=== PATIENT | female | born 1965 ===

== ENCOUNTER 2018-05-31 13:39 | Emergency (ER) | payer OTHER ==
[2018-05-31] MEDS ORDERED: IPRATROPIUM/ALBUTEROL 0.5-2.5 MG/3 ML AMPUL NEB ONE (14:28)
--- NOTE | 2018-05-31 14:30 | ER Document Report ---
ED Medical Screen (RME) - General Chief Complaint: Shortness Of Breath Stated Complaint: SHORTNESS OF BREATH Time Seen by Provider: 05/31/18 14:24 Notes: Fever,chills cough,sob since this morning. Been on 4 rounds of antibiotics last month. decreased BS TRAVEL OUTSIDE OF THE [place] IN LAST 30 DAYS: No - Related Data Allergies/Adverse Reactions: DORITA Inhibitors Allergy (Verified 05/31/18 13:43) egg Allergy (Verified 05/31/18 13:43) latex Allergy (Verified 05/31/18 13:43) metronidazole [From Flagyl] Allergy (Verified 05/31/18 13:43) shellfish derived Allergy (Verified 05/31/18 13:43) Physical Exam - Vital signs Vitals: Temp Pulse Resp BP Pulse Ox 98.3 F 85 16 142/93 H 97 05/31/18 14:04 05/31/18 14:04 05/31/18 14:04 05/31/18 14:04 05/31/18 14:04 Course - Vital Signs Vital signs: Temp Pulse Resp BP Pulse Ox 98.3 F 85 16 142/93 H 97 05/31/18 14:04 05/31/18 14:04 05/31/18 14:04 05/31/18 14:04 05/31/18 14:04 Doctor's Discharge - Discharge Referrals: MAYA RAMOS MD [Primary Care Provider] - Follow up as needed
[2018-05-31 15:18] LABS: ABSOLUTE BASOPHILS # (AUTO) 0.1 10^3/uL (0.0-0.2); ABSOLUTE EOSINOPHILS # (AUTO) 0.6 10^3/uL (0.0-0.6); ABSOLUTE LYMPHOCYTES (AUTO) 2.5 10^3/uL (0.5-4.7); ABSOLUTE MONOCYTES (AUTO) 0.8 10^3/uL (0.1-1.4); ABSOLUTE NEUT (AUTO) 5.4 10^3/uL (1.7-8.2); BASOPHILS % (AUTO) 1.5 % (0-2); EOSINOPHILS % (AUTO) 6.4 % (0-6); HEMATOCRIT 42.4 % (36.0-47.0); HEMOGLOBIN 14.7 g/dL (12.0-15.5); LYMPHOCYTES % (AUTO) 26.6 % (13-45); MEAN CORPUSCULAR HGB CONC 34.7 g/dL (32.0-36.0); MEAN CORPUSCULAR VOLUME 86 fl (80-97); PLATELET COUNT 281 10^3/uL (150-450); RED BLOOD COUNT 4.91 10^6/uL (3.72-5.28); RED CELL DISTRIBUTION WIDTH 13.3 % (11.5-14.0); SEGMENTED NEUTROPHILS % (AUTO) 57.5 % (42-78); TOTAL CELLS COUNTED % (AUTO) 100 %; WHITE BLOOD COUNT 9.4 10^3/uL (4.0-10.5)
[2018-05-31] MEDS ORDERED: NORMAL SALINE 1000 ML 1,000 ML IV ONE (15:34)
[2018-05-31] MEDS ORDERED: BENZONATATE 100 MG CAPSULE PO ONE (15:34)
[2018-05-31] MEDS ORDERED: KETOROLAC TROMETHAMINE INJ/PF 30 MG/1 ML SDV IV ONE (15:34)
[2018-05-31] MEDS ORDERED: ALBUTEROL SULFATE 0.083% NEB 2.5 MG/3 ML AMPUL NEB ONE (15:34)
[2018-05-31] MEDS ORDERED: METHYLPREDNISOLONE INJ 125 MG/2 ML SDV IV ONE (15:34)
--- NOTE | 2018-05-31 15:34 | ER Document Report ---
ED Respiratory Problem - General Chief Complaint: Shortness Of Breath Stated Complaint: SHORTNESS OF BREATH Time Seen by Provider: 05/31/18 14:24 Mode of Arrival: Ambulatory Information source: Patient TRAVEL OUTSIDE OF THE [place] IN LAST 30 DAYS: No - HPI Patient complains to provider of: Cough, Short of breath Onset: Other - 6 weeks Duration: Intermittent episodes Short of Breath: Moderate Chest pain/discomfort: Tightness Cough: Nonproductive Associated symptoms: Congestion, Cough, Short of breath Similar symptoms previously: Yes Recently seen / treated by doctor: Yes Notes: Patient is a 52-year-old female presenting to the emergency room today complaining of approximately 6-week history of cough, congestion, shortness of breath, worsening over the past few days, she was previously diagnosed with bronchitis by her primary care provider and placed on 2 separate rounds of Augmentin at which time she started to feel better, she did also receive a round of penicillin secondary to a tooth abscess, and then had an EGD/ colonoscopy for which she received prophylactic Augmentin and penicillin, and was treated for a UTI with Macrobid during the course of the 6 weeks, at around 4:00 this morning patient woke up feeling tightness in her chest with a fever body aches and a wheezing cough, she reports some intermittent dizziness throughout the day today, denies any sick contacts, she does not smoke cigarettes, received a nebulizer treatment prior to my initial evaluation reports feeling some relief of symptoms at this time - Related Data Allergies/Adverse Reactions: DORITA Inhibitors Allergy (Verified 05/31/18 13:43) egg Allergy (Verified 05/31/18 13:43) latex Allergy (Verified 05/31/18 13:43) metronidazole [From Flagyl] Allergy (Verified 05/31/18 13:43) shellfish derived Allergy (Verified 05/31/18 13:43) Past Medical History - General Information source: Patient - Social History Smoking Status: Never Smoker Chew tobacco use (# tins/day): No Frequency of alcohol use: None Drug Abuse: None Family History: Reviewed & Not Pertinent Patient has suicidal ideation: No Patient has homicidal ideation: No - Past Medical History Cardiac Medical History: Reports: Hx Hypertension Pulmonary Medical History: Reports: Hx Pneumonia Renal/ Medical History: Denies: Hx Peritoneal Dialysis Past Surgical History: Reports: Hx Cholecystectomy, Hx Orthopedic Surgery - neck fusion Review of Systems - Review of Systems Constitutional: Fever EENT: No symptoms reported Cardiovascular: No symptoms reported Respiratory: See HPI Gastrointestinal: No symptoms reported Genitourinary: No symptoms reported Female Genitourinary: No symptoms reported Musculoskeletal: See HPI Skin: No symptoms reported Hematologic/Lymphatic: No symptoms reported Neurological/Psychological: No symptoms reported -: Yes All other systems reviewed and negative Physical Exam - Vital signs Vitals: Temp Pulse Resp BP Pulse Ox 98.3 F 85 16 142/93 H 97 05/31/18 14:04 05/31/18 14:04 05/31/18 14:04 05/31/18 14:04 05/31/18 14:04 Interpretation: Hypertensive - General General appearance: Appears well, Alert - HEENT Head: Normocephalic, Atraumatic Eyes: Normal Pupils: PERRL - Respiratory Respiratory status: No respiratory distress Chest status: Nontender Breath sounds: Nonproductive cough, Wheezing Chest palpation: Normal - Cardiovascular Rhythm: Regular Heart sounds: Normal auscultation Murmur: No - Abdominal Inspection: Normal Distension: No distension Bowel sounds: Normal Tenderness: Nontender Organomegaly: No organomegaly - Back Back: Normal, Nontender - Extremities General upper extremity: Normal inspection, Nontender, Normal color, Normal ROM , Normal temperature General lower extremity: Normal inspection, Nontender, Normal color, Normal ROM , Normal temperature, Normal weight bearing. No: Lucretia's sign - Neurological Neuro grossly intact: Yes Cognition: Normal Orientation: AAOx4 [place] Coma Scale Eye Opening: Spontaneous [place] Coma Scale Verbal: Oriented [place] Coma Scale Motor: Obeys Commands [place] Coma Scale Total: 15 Speech: Normal Motor strength normal: LUE, RUE, LLE, RLE Sensory: Normal - Psychological Associated symptoms: Normal affect, Normal mood - Skin Skin Temperature: Warm Skin Moisture: Dry Skin Color: Normal Course - Re-evaluation Re-evalutation: 05/31/18 16:46 Patient resting comfortably, she reports feeling much better, vital signs are stable, lungs are clear to auscultation, symptoms consistent with viral URI, patient will be discharged with prescription for albuterol inhaler, tapering dose of steroids and cough suppressant medicine as well as instructions for follow-up, advised to return if symptoms worsen in any way, patient acknowledges understanding and agreement with this plan - Vital Signs Vital signs: Temp Pulse Resp BP Pulse Ox 98.3 F 85 13 115/66 96 05/31/18 14:04 05/31/18 14:04 05/31/18 17:32 05/31/18 17:32 05/31/18 17:32 - Laboratory Result Diagrams: 05/31/18 15:08 05/31/18 15:08 Laboratory results interpreted by me: 05/31/18 15:08 Eosinophils % 6.4 H - Diagnostic Test Radiology reviewed: Image reviewed, Reports reviewed - EKG Interpretation by Me EKG shows normal: Sinus rhythm Rate: Normal Rhythm: NSR Discharge - Discharge Clinical Impression: Viral upper respiratory illness Condition: Stable Disposition: HOME, SELF-CARE Instructions: Upper Respiratory Illness ([facility]), Viral Syndrome ([facility]) Additional Instructions: Follow up with your primary care provider in one to 2 days. Return to the emergency room immediately if symptoms worsen or any additional concerns. Prescriptions: Albuterol Sulfate [Proair HFA Inhalation Aerosol 8.5 gm MDI] 1 puff IH Q4 PRN # 1 mdi PRN Reason: Benzonatate [Tessalon Perles 100 mg Capsule] 100 mg PO ASDIR PRN #40 capsule PRN Reason: Methylprednisolone [Medrol Dosepack (4 mg/Tab) 21 Tab/Dosepak] 4 mg PO ASDIR PRN #21 tab.ds.[id number] PRN Reason: Forms: Return to Work Referrals: MAYA RAMOS MD [Primary Care Provider] - Follow up as needed
[2018-05-31 15:36] LABS: ALANINE AMINOTRANSFERASE 23 U/L (9-52); ALBUMIN 4.2 g/dL (3.5-5.0); ALKALINE PHOSPHATASE 77 U/L (38-126); ANION GAP 14 (5-19); ASPARTATE AMINO TRANSFERASE 27 U/L (14-36); BILIRUBIN,DIRECT 0.3 mg/dL (0.0-0.4); BILIRUBIN,TOTAL 0.6 mg/dL (0.2-1.3); BLOOD UREA NITROGEN 17 mg/dL (7-20); CALCIUM 9.5 mg/dL (8.4-10.2); CARBON DIOXIDE 23 mmol/L (22-30); CHLORIDE 106 mmol/L (98-107); GLUCOSE 101 mg/dL (75-110); POTASSIUM 4.3 mmol/L (3.6-5.0); SODIUM 142.7 mmol/L (137-145); TOTAL PROTEIN 7.9 g/dL (6.3-8.2)
[2018-05-31 15:50] LABS: A TYPE INFLUENZA AG NEGATIVE (NEGATIVE); B INFLUENZA AG NEGATIVE (NEGATIVE)
[2018-05-31 15:56] LABS: NT PRO BNP 97 pg/mL (5-900)
[2018-05-31 15:57] LABS: TROPONIN I < 0.012 ng/mL
--- NOTE | 2018-05-31 16:22 | RADIOLOGY REPORT (SQ) ---
EXAM DESCRIPTION: CHEST 2 VIEWS COMPLETED DATE/TIME: 05/31/2018 3:51 pm REASON FOR STUDY: sob COMPARISON: Two-view chest 03/14/2018 EXAM PARAMETERS: NUMBER OF VIEWS: two views TECHNIQUE: Digital Frontal and Lateral radiographic views of the chest acquired. RADIATION DOSE: NA LIMITATIONS: none FINDINGS: LUNGS AND PLEURA: Trace bilateral pleural effusions are present in the posterior costophre heidi sulci. No fluffy alveolar infiltrates worrisome for pulmonary edema or pneumonia. No pneumothorax. MEDIASTINUM AND HILAR STRUCTURES: No masses or contour abnormalities. HEART AND VASCULAR STRUCTURES: No cardiomegaly BONES: No acute findings. HARDWARE: Clips right upper quadrant post cholecystectomy. Lower cervical fusion hardware OTHER: No other significant finding. IMPRESSION: Trace bilateral pleural effusions in the posterior costophrenic sulci TECHNICAL DOCUMENTATION: JOB ID: [id number] [employer]- All Rights Reserved Reading location - IP/workstation name: [email or web address]
[2018-05-31 17:47] VITALS: BP 115/66
--- NOTE | 2018-05-31 18:56 | EKG REPORT ---
SEVERITY:- ABNORMAL ECG - SINUS RHYTHM LEFT ATRIAL ABNORMALITY LEFT ANTERIOR FASCICULAR BLOCK PROBABLE LEFT VENTRICULAR HYPERTROPHY : Confirmed by: Td Chaidez MD 31-May-2018 18:56:26
== END 2018-05-31 17:52 | disposition home or self-care (01) ==
LOC: ER 13:39
DX: J39.9 Disease of upper respiratory tract, unspecified (principal); B97.89 Other viral agents as the cause of diseases classified elsewhere; R06.02 Shortness of breath; R05 Cough; R07.89 Other chest pain; R06.2 Wheezing; R50.9 Fever, unspecified; R42 Dizziness and giddiness; Z88.8 Allergy status to other drugs, medicaments and biological substances; Z91.012 Allergy to eggs; Z91.040 Latex allergy status; Z88.1 Allergy status to other antibiotic agents; Z91.013 Allergy to seafood
CPT/HCPCS: 93005; 94640 ×2; 99285; 96361; 96374; 96375; 36415; 85025; 80053; 84484; 87804; 83880; 71046; 93010; J2930; J1885; J7030; J7620